=== PATIENT | male | born 1950 | race Caucasian/White ===

== ENCOUNTER 2017-12-06 13:22 | Inpatient (IN) | payer BC, MEDICARE ==
[~2017-12-06] VITALS: Ht 6038.7 cm; Wt 117.7 kg
[~2017-12-06 13:22] MED LIST: PHEN-873 PO
[2017-12-06] MEDS ORDERED: aspirin 81mg tab.chew PO ONE (13:45)
[2017-12-06] MEDS ORDERED: nitroGLYCERIN 0.4mg/hour patch TD ONE (13:45)
[2017-12-06] MEDS ORDERED: furosemide 10 MG/1 ML 10ml inj IV ONE (13:45)
[2017-12-06 13:47] LABS: BASOPHILS % (AUTO) 0.6 % (0-1); EOSINOPHILS # (AUTO) 0.1 X10'3 (0-0.9); EOSINOPHILS % (AUTO) 1.6 % (0-6); HEMATOCRIT 40.3 % (42.0-52.0); HEMOGLOBIN 13.9 g/dl (14.0-17.9); LYMPHOCYTES # (AUTO) 1.7 X10'3 (1.1-4.8); LYMPHOCYTES % (AUTO) 31.2 % (21-51); MEAN CORPUSCULAR HEMOGLOBIN 36.1 PG (27.0-31.0); MEAN CORPUSCULAR HGB CONC 34.5 % (33.0-36.5); MEAN CORPUSCULAR VOLUME 104.6 FL (78-98); MEAN PLATELET VOLUME 7.4 FL (7.4-10.4); MONOCYTES # (AUTO) 0.5 X10'3 (0-0.9); MONOCYTES % (AUTO) 8.4 % (2-12); NEUTROPHILS # (AUTO) 3.3 X10'3 (1.8-7.7); NEUTROPHILS % (AUTO) 58.2 % (42-75); PLATELET COUNT 221 X10'3 (140-440); RED BLOOD COUNT 3.86 X10'6 (4.70-6.10); RED CELL DISTRIBUTION WIDTH 14.6 % (11.5-14.5); WHITE BLOOD COUNT 5.6 X10'3 (4.5-11.0)
[2017-12-06 13:56] LABS: PARTIAL THROMBOPLASTIN TIME 26 SECONDS (22-32); PROTHROMBIN TIME 10.6 SECONDS (9.0-12.0)
[2017-12-06 14:03] LABS: ALANINE AMINOTRANSFERASE 118 U/L (12-78); ALBUMIN/GLOBULIN RATIO 1.1 (1.1-1.5); ALKALINE PHOSPHATASE 113 IU/L (46-116); ANION GAP 12 (8-16); ASPARTATE AMINO TRANSFERASE 37 U/L (10-37); BILIRUBIN,TOTAL 0.7 MG/DL (0.1-1.0); BLOOD UREA NITROGEN 28 MG/DL (7-18); BUN/CREATININE RATIO 19.4 (5.4-32.0); CALCIUM 9.2 MG/DL (8.5-10.1); CHLORIDE 105 MMOL/L (99-107); CREATININE 1.44 MG/DL (0.60-1.10); GLUCOSE 105 MG/DL (70-104); POTASSIUM 3.9 MMOL/L (3.5-5.1); SODIUM 142 MMOL/L (135-145); TOTAL CARBON DIOXIDE 24.9 MMOL/L (24-32); TOTAL PROTEIN 7.6 G/DL (6.4-8.2); eGFR 49 ML/MIN
[2017-12-06] MEDS ORDERED: phenazopyridine 100mg tablet PO PRN (15:15)
[2017-12-06] MEDS ORDERED: potassium Cl 20 mEq SR tablet PO PRN ×2 (15:20)
[2017-12-06] MEDS ORDERED: magnesium Cl slow-release 64mg tablet PO PRN (15:20)
[2017-12-06] MEDS ORDERED: magnesium 4gm in 100ml NS 100 ML IV PRN (15:20)
[2017-12-06] MEDS ORDERED: ondansetron/PF 4mg/2ml inj IV PRN (15:20)
[2017-12-06] MEDS ORDERED: potassium Cl 40MEQ/NS 500ml 500 ML IV PRN ×2 (15:20)
[2017-12-06] MEDS ORDERED: mag hydrox/Alum hydrox/simeth 30ml oral suspension PO PRN (15:20)
[2017-12-06] MEDS ORDERED: morphine 4 MG/ML inj SYRINge IV PRN (15:20)
[2017-12-06] MEDS ORDERED: magnesium hydroxide 30ml (MOM) UD suspension PO PRN (15:20)
[2017-12-06] MEDS ORDERED: magnesium 2GM in 50ml NS 50 ML IV PRN (15:20)
[2017-12-06] MEDS ORDERED: SIMV10TA2 PO (15:56)
[2017-12-06] MEDS: docusate sod 100mg capsule PO SCH (20:17)
[2017-12-06] MEDS: furosemide 10 MG/1 ML 10ml inj IV SCH (20:17)
[2017-12-06] MEDS ORDERED: Melatonin 3mg tablet PO PRN (23:25)
[2017-12-07] VITALS (12 sets, daily range): BP systolic 108–129; BP diastolic 74–90
[2017-12-07] MEDS: acetaminophen 325mg tablet PO PRN ×3 (00:11→11:42)
[2017-12-07] MEDS: nitroGLYCERIN 1gm ointment UD TP SCH ×3 (00:14→11:39)
[2017-12-07 05:55] LABS: BASOPHILS % (AUTO) 0.3 % (0-1); EOSINOPHILS # (AUTO) 0.1 X10'3 (0-0.9); EOSINOPHILS % (AUTO) 1.9 % (0-6); HEMATOCRIT 36.3 % (42.0-52.0); HEMOGLOBIN 12.5 g/dl (14.0-17.9); LYMPHOCYTES # (AUTO) 1.6 X10'3 (1.1-4.8); MEAN CORPUSCULAR HEMOGLOBIN 35.7 PG (27.0-31.0); MEAN CORPUSCULAR HGB CONC 34.4 % (33.0-36.5); MEAN CORPUSCULAR VOLUME 103.7 FL (78-98); MEAN PLATELET VOLUME 7.6 FL (7.4-10.4); MONOCYTES # (AUTO) 0.5 X10'3 (0-0.9); MONOCYTES % (AUTO) 8.3 % (2-12); NEUTROPHILS # (AUTO) 3.6 X10'3 (1.8-7.7); NEUTROPHILS % (AUTO) 61.5 % (42-75); PLATELET COUNT 197 X10'3 (140-440); RED CELL DISTRIBUTION WIDTH 14.6 % (11.5-14.5); WHITE BLOOD COUNT 5.9 X10'3 (4.5-11.0)
[2017-12-07] MEDS ORDERED: regadenoson 0.4mg/5ml syringe IV ONE ×2 (06:00→09:08)
[2017-12-07] MEDS ORDERED: metoprolol tartrate 1mg/ml inj IV PRN (06:00)
[2017-12-07] MEDS ORDERED: aminophylline 250mg/10ml inj. IV PRN (06:00)
[2017-12-07] MEDS ORDERED: nitroGLYCERIN 0.4mg SUBLingual tab SL PRN (06:00)
[2017-12-07 06:24] LABS: ALBUMIN 3.6 G/DL (3.4-5.0); ANION GAP 11 (8-16); BLOOD UREA NITROGEN 30 MG/DL (7-18); BUN/CREATININE RATIO 18.3 (5.4-32.0); CALCIUM 8.9 MG/DL (8.5-10.1); CHLORIDE 107 MMOL/L (99-107); CREATININE 1.64 MG/DL (0.60-1.10); GLUCOSE 96 MG/DL (70-104); MAGNESIUM 1.9 MG/DL (1.5-2.4); POTASSIUM 3.9 MMOL/L (3.5-5.1); SODIUM 145 MMOL/L (135-145); TOTAL CARBON DIOXIDE 26.7 MMOL/L (24-32); eGFR 42 ML/MIN
[2017-12-07] MEDS: furosemide 10 MG/1 ML 10ml inj IV SCH (08:00)
[2017-12-07] MEDS: docusate sod 100mg capsule PO SCH ×2 (08:00→20:15)
[2017-12-07] MEDS: K and/or MAG REPLACEMENT MC SCH (08:00)
[2017-12-07] MEDS: enoxaparin 40mg/0.4ml syringe SUBCUT SCH (08:00)
[2017-12-07] MEDS ORDERED: aminophylline inj. 0 ML IV ONE (09:08)
[2017-12-07] MEDS ORDERED: furosemide 20MG tablet PO ONE (12:40)
[2017-12-07] MEDS ORDERED: carVEDilol 3.125mg tablet PO SCH (20:00)
[2017-12-07] MEDS: carvedilol 6.25mg tablet PO SCH (20:15)
[2017-12-08 03:00] VITALS: BP 120/89
[2017-12-08 04:29] LABS: BASOPHILS % (AUTO) 0.4 % (0-1); EOSINOPHILS # (AUTO) 0.1 X10'3 (0-0.9); EOSINOPHILS % (AUTO) 2.1 % (0-6); HEMATOCRIT 38.6 % (42.0-52.0); HEMOGLOBIN 13.6 g/dl (14.0-17.9); LYMPHOCYTES # (AUTO) 1.7 X10'3 (1.1-4.8); MEAN CORPUSCULAR HEMOGLOBIN 36.2 PG (27.0-31.0); MEAN CORPUSCULAR HGB CONC 35.2 % (33.0-36.5); MEAN CORPUSCULAR VOLUME 102.7 FL (78-98); MEAN PLATELET VOLUME 7.8 FL (7.4-10.4); MONOCYTES # (AUTO) 0.4 X10'3 (0-0.9); MONOCYTES % (AUTO) 8.5 % (2-12); NEUTROPHILS # (AUTO) 2.7 X10'3 (1.8-7.7); PLATELET COUNT 204 X10'3 (140-440); RED BLOOD COUNT 3.76 X10'6 (4.70-6.10); RED CELL DISTRIBUTION WIDTH 14.3 % (11.5-14.5)
[2017-12-08 04:30] LABS: PROTHROMBIN TIME 10.7 SECONDS (9.0-12.0)
[2017-12-08 05:18] LABS: ALANINE AMINOTRANSFERASE 78 U/L (12-78); ALBUMIN 3.5 G/DL (3.4-5.0); ALKALINE PHOSPHATASE 100 IU/L (46-116); ANION GAP 11 (8-16); ASPARTATE AMINO TRANSFERASE 25 U/L (10-37); BILIRUBIN,TOTAL 0.8 MG/DL (0.1-1.0); BLOOD UREA NITROGEN 34 MG/DL (7-18); BUN/CREATININE RATIO 20.7 (5.4-32.0); CHLORIDE 105 MMOL/L (99-107); CREATININE 1.64 MG/DL (0.60-1.10); GLUCOSE 99 MG/DL (70-104); SODIUM 144 MMOL/L (135-145); TOTAL CARBON DIOXIDE 27.8 MMOL/L (24-32); TOTAL PROTEIN 6.9 G/DL (6.4-8.2); eGFR 42 ML/MIN
[2017-12-08 06:00] VITALS: BP 134/88
[2017-12-08] MEDS: carvedilol 6.25mg tablet PO SCH ×2 (08:00→19:13)
[2017-12-08] MEDS: K and/or MAG REPLACEMENT MC SCH (08:00)
[2017-12-08] MEDS ORDERED: lisinopril 5mg tablet PO SCH (08:00)
[2017-12-08] MEDS ORDERED: furosemide 20MG tablet PO SCH (08:00)
[2017-12-08] MEDS: docusate sod 100mg capsule PO SCH ×2 (08:00→19:15)
[2017-12-08] MEDS: enoxaparin 40mg/0.4ml syringe SUBCUT SCH (08:00)
[2017-12-08] MEDS ORDERED: LORazepam 1 MG tablet PO PRN ×2 (08:55→23:45)
[2017-12-08] MEDS: pantoprazole 40 MG vial IV SCH (09:10)
[2017-12-08] MEDS: furosemide 20MG tablet PO SCH (09:10)
[2017-12-08 11:00] VITALS: BP 133/94
[2017-12-08 15:00] VITALS: BP 117/86
[2017-12-08 19:00] VITALS: BP 125/88
[2017-12-08 23:00] VITALS: BP 96/63
[2017-12-08] MEDS ORDERED: LORazepam 2 mg/ml vial IV PRN (23:45)
[2017-12-08] MEDS ORDERED: thiamine inj. 100 MG in normal saline 100ml IV soln 100 ML IV ONE (23:45)
[2017-12-09 03:00] VITALS: BP 107/74
[2017-12-09 05:15] LABS: BASOPHILS % (AUTO) 0.6 % (0-1); EOSINOPHILS # (AUTO) 0.1 X10'3 (0-0.9); EOSINOPHILS % (AUTO) 2.7 % (0-6); HEMATOCRIT 38.5 % (42.0-52.0); HEMOGLOBIN 13.4 g/dl (14.0-17.9); LYMPHOCYTES # (AUTO) 1.9 X10'3 (1.1-4.8); LYMPHOCYTES % (AUTO) 36.2 % (21-51); MEAN CORPUSCULAR HEMOGLOBIN 35.9 PG (27.0-31.0); MEAN CORPUSCULAR HGB CONC 34.9 % (33.0-36.5); MEAN CORPUSCULAR VOLUME 102.8 FL (78-98); MEAN PLATELET VOLUME 7.8 FL (7.4-10.4); MONOCYTES # (AUTO) 0.4 X10'3 (0-0.9); MONOCYTES % (AUTO) 8.6 % (2-12); NEUTROPHILS # (AUTO) 2.7 X10'3 (1.8-7.7); NEUTROPHILS % (AUTO) 51.9 % (42-75); PLATELET COUNT 221 X10'3 (140-440); RED BLOOD COUNT 3.74 X10'6 (4.70-6.10); RED CELL DISTRIBUTION WIDTH 14.3 % (11.5-14.5); WHITE BLOOD COUNT 5.1 X10'3 (4.5-11.0)
[2017-12-09 05:16] LABS: PROTHROMBIN TIME 10.2 SECONDS (9.0-12.0)
[2017-12-09 05:34] LABS: ALANINE AMINOTRANSFERASE 65 U/L (12-78); ALBUMIN 3.6 G/DL (3.4-5.0); ALKALINE PHOSPHATASE 95 IU/L (46-116); AMYLASE 33 U/L (25-115); ANION GAP 10 (8-16); ASPARTATE AMINO TRANSFERASE 22 U/L (10-37); BILIRUBIN,TOTAL 0.7 MG/DL (0.1-1.0); BLOOD UREA NITROGEN 34 MG/DL (7-18); BUN/CREATININE RATIO 22.7 (5.4-32.0); CALCIUM 9.1 MG/DL (8.5-10.1); CHLORIDE 102 MMOL/L (99-107); GLUCOSE 116 MG/DL (70-104); LIPASE 151 U/L (73-393); PHOSPHORUS 4.1 MG/DL (2.3-4.5); SODIUM 140 MMOL/L (135-145); TOTAL CARBON DIOXIDE 28.3 MMOL/L (24-32); TOTAL PROTEIN 7.1 G/DL (6.4-8.2); eGFR 47 ML/MIN
[2017-12-09 07:00] VITALS: BP 118/89
[2017-12-09] MEDS: K and/or MAG REPLACEMENT MC SCH (08:00)
[2017-12-09] MEDS: enoxaparin 40mg/0.4ml syringe SUBCUT SCH (08:00)
[2017-12-09] MEDS: pantoprazole 40 MG vial IV SCH (08:00)
[2017-12-09] MEDS: multivitamins, therapeutics tablet PO SCH (08:00)
[2017-12-09] MEDS ORDERED: folic acid inj. 2 MG, thiamine inj. 100 MG, MVI, adult No.4 with vit. K 10 ML in dextro... IV SCH ×4 (08:00)
[2017-12-09] MEDS: thiamine 100mg tablet PO SCH (08:00)
[2017-12-09] MEDS: folic acid 1mg tablet PO SCH (08:00)
[2017-12-09] MEDS: docusate sod 100mg capsule PO SCH ×2 (08:00→20:00)
[2017-12-09] MEDS: carvedilol 6.25mg tablet PO SCH ×2 (08:02→21:05)
[2017-12-09] MEDS: lisinopril 5mg tablet PO SCH (08:02)
[2017-12-09] MEDS: furosemide 20MG tablet PO SCH (08:02)
[2017-12-09 11:00] VITALS: BP 113/83
[2017-12-09 17:35] VITALS: BP 116/86
[2017-12-09 19:00] VITALS: BP 120/87
[2017-12-09 22:30] VITALS: BP 115/83
[2017-12-10 02:30] VITALS: BP 111/80
[2017-12-10 05:00] LABS: BASOPHILS % (AUTO) 0.6 % (0-1); EOSINOPHILS # (AUTO) 0.1 X10'3 (0-0.9); EOSINOPHILS % (AUTO) 2.8 % (0-6); HEMATOCRIT 38.6 % (42.0-52.0); HEMOGLOBIN 13.3 g/dl (14.0-17.9); LYMPHOCYTES # (AUTO) 1.9 X10'3 (1.1-4.8); LYMPHOCYTES % (AUTO) 39.6 % (21-51); MEAN CORPUSCULAR HEMOGLOBIN 35.7 PG (27.0-31.0); MEAN CORPUSCULAR HGB CONC 34.4 % (33.0-36.5); MEAN CORPUSCULAR VOLUME 103.6 FL (78-98); MEAN PLATELET VOLUME 7.4 FL (7.4-10.4); MONOCYTES # (AUTO) 0.4 X10'3 (0-0.9); MONOCYTES % (AUTO) 9.2 % (2-12); NEUTROPHILS # (AUTO) 2.3 X10'3 (1.8-7.7); NEUTROPHILS % (AUTO) 47.8 % (42-75); PLATELET COUNT 215 X10'3 (140-440); RED BLOOD COUNT 3.73 X10'6 (4.70-6.10); RED CELL DISTRIBUTION WIDTH 14.4 % (11.5-14.5); WHITE BLOOD COUNT 4.9 X10'3 (4.5-11.0)
[2017-12-10 05:16] LABS: PROTHROMBIN TIME 10.2 SECONDS (9.0-12.0)
[2017-12-10 05:17] LABS: ALANINE AMINOTRANSFERASE 57 U/L (12-78); ALBUMIN 3.4 G/DL (3.4-5.0); ALKALINE PHOSPHATASE 87 IU/L (46-116); AMYLASE 32 U/L (25-115); ANION GAP 9 (8-16); ASPARTATE AMINO TRANSFERASE 21 U/L (10-37); BILIRUBIN,TOTAL 0.7 MG/DL (0.1-1.0); BLOOD UREA NITROGEN 31 MG/DL (7-18); BUN/CREATININE RATIO 24.4 (5.4-32.0); CALCIUM 9.2 MG/DL (8.5-10.1); CHLORIDE 105 MMOL/L (99-107); CREATININE 1.27 MG/DL (0.60-1.10); GLUCOSE 100 MG/DL (70-104); LIPASE 147 U/L (73-393); MAGNESIUM 2.2 MG/DL (1.5-2.4); PHOSPHORUS 3.8 MG/DL (2.3-4.5); POTASSIUM 4.3 MMOL/L (3.5-5.1); SODIUM 142 MMOL/L (135-145); TOTAL CARBON DIOXIDE 28.5 MMOL/L (24-32); TOTAL PROTEIN 6.8 G/DL (6.4-8.2); eGFR 57 ML/MIN
[2017-12-10 06:00] VITALS: BP 179/72
[2017-12-10] MEDS: multivitamins, therapeutics tablet PO SCH (08:00)
[2017-12-10] MEDS: K and/or MAG REPLACEMENT MC SCH (08:00)
[2017-12-10] MEDS: pantoprazole 40 MG vial IV SCH (08:00)
[2017-12-10] MEDS: docusate sod 100mg capsule PO SCH ×2 (08:00→20:00)
[2017-12-10] MEDS: enoxaparin 40mg/0.4ml syringe SUBCUT SCH (08:00)
[2017-12-10] MEDS: thiamine 100mg tablet PO SCH (08:00)
[2017-12-10] MEDS: folic acid 1mg tablet PO SCH (08:39)
[2017-12-10] MEDS: carvedilol 6.25mg tablet PO SCH ×2 (08:39→20:14)
[2017-12-10] MEDS: lisinopril 5mg tablet PO SCH (08:39)
[2017-12-10] MEDS: furosemide 20MG tablet PO SCH (08:39)
[2017-12-10 11:30] VITALS: BP 111/80
[2017-12-10 15:30] VITALS: BP 130/76
[2017-12-10] MEDS ORDERED: CARV3.12 PO (20:20)
[2017-12-10] MEDS ORDERED: ASPI-1265 PO (20:20)
[2017-12-10] MEDS ORDERED: FURO-150 PO (20:20)
[2017-12-10] MEDS ORDERED: LISI-604 PO (20:20)
[2017-12-11] MEDS ORDERED: pantoprazole 40mg Tablet.DR PO SCH (07:30)
== END 2017-12-10 21:00 | disposition home or self-care (01) | DRG 291 ==
LOC: ER 13:23 → ED HOLD 15:16 → EDBEDREQ 12-07 13:33 → PCU 3S 12-07 14:16 → CMPBEDREQ 12-07 19:57
PROVIDERS: ADMIT Internal Medicine; ATTEND Internal Medicine
PROC: 4A02XM4 Measurement of Cardiac Total Activity, External Approach (ICD-10-PCS; principal; 2017-12-07)
PROC: 3E073KZ Introduction of Other Diagnostic Substance into Coronary Artery, Percutaneous Approach (ICD-10-PCS; 2017-12-07)
DX: I13.0 Hypertensive heart and chronic kidney disease with heart failure and stage 1 through stage 4 chronic kidney disease, or unspecified chronic kidney disease (principal); N17.0 Acute kidney failure with tubular necrosis; I50.23 Acute on chronic systolic (congestive) heart failure; N18.9 Chronic kidney disease, unspecified; E66.9 Obesity, unspecified; D53.9 Nutritional anemia, unspecified; F10.10 Alcohol abuse, uncomplicated; F17.210 Nicotine dependence, cigarettes, uncomplicated; E78.00 Pure hypercholesterolemia, unspecified; E78.5 Hyperlipidemia, unspecified; N40.0 Benign prostatic hyperplasia without lower urinary tract symptoms; Z90.79 Acquired absence of other genital organ(s)
CPT/HCPCS: 36415; 71045; 78452; 80048; 80053; 82150; 83690; 83735; 83880; 84100; 84443; 84484; 85025; 85610; 85730; 87070; 93005; 93017; 93306; 96374; 97116; 97530; 99285; A9500; C9113; J0280; J1650; J1940; J2270; J3411; J3490; J7030; J7060

== ENCOUNTER 2021-01-22 06:12 | Day surgery (SDC) | payer MEDICARE, OTHER ==
[2021-01-15 10:38] LABS: BASOPHILS % (AUTO) 0.4 % (0-1); EOSINOPHILS # (AUTO) 0.2 X10'3 (0-0.9); LYMPHOCYTES # (AUTO) 1.3 X10'3 (1.1-4.8); MEAN CORPUSCULAR HEMOGLOBIN 36.6 PG (27.0-31.0); MEAN CORPUSCULAR HGB CONC 34.3 g/dL (33.0-36.5); MEAN CORPUSCULAR VOLUME 106.7 FL (78-98); MEAN PLATELET VOLUME 7.5 FL (7.4-10.4); MONOCYTES # (AUTO) 0.3 X10'3 (0-0.9); NEUTROPHILS # (AUTO) 2.4 X10'3 (1.8-7.7); NEUTROPHILS % (AUTO) 56.6 % (42-75); PRE OP HEMATOCRIT 36.6 % (42.0-52.0); PRE OP HEMOGLOBIN 12.6 g/dL (14.0-17.9); PRE OP PLATELET COUNT 197 X10'3 (140-440); RED BLOOD COUNT 3.43 X10'6 (4.70-6.10); RED CELL DISTRIBUTION WIDTH 12.6 % (11.5-14.5)
[2021-01-15 10:53] LABS: ALBUMIN 4.2 G/DL (3.4-5.0); ALBUMIN/GLOBULIN RATIO 1.3 (1.1-1.5); ALKALINE PHOSPHATASE 70 IU/L (46-116); BLOOD UREA NITROGEN 23 MG/DL (7-18); BUN/CREATININE RATIO 19.5 (5.4-32.0); CALCIUM 8.7 MG/DL (8.5-10.1); CHLORIDE 105 MMOL/L (99-107); CREATININE 1.18 MG/DL (0.60-1.10); PRE OP ALT 26 U/L (30-65); PRE OP ANION GAP 7 (8-16); PRE OP AST 18 U/L (10-37); PRE OP BILIRUB, TOTAL 0.5 MG/DL (0.0-1.0); PRE OP GLUCOSE 102 MG/DL (70-104); PRE OP POTASSIUM 4.8 MMOL/L (3.4-5.1); PRE OP SODIUM 140 MMOL/L (135-145); TOTAL CARBON DIOXIDE 28.5 MMOL/L (24-32); TOTAL PROTEIN 7.4 G/DL (6.4-8.2); eGFR 61 ML/MIN
[~2021-01-22] VITALS: Ht 182.9 cm; Wt 113.4 kg
[2021-01-22] VITALS (18 sets, daily range): BP systolic 104–139; BP diastolic 38–83
[~2021-01-22 06:12] MED LIST changes: +ACET-2971 PO; +ACET-3414 PO; +ASPI81TA52 PO; +ATOR40TA72 PO; +CARV-50 PO; +DOCUMENT DATE & TIME OF BETA-BLOCKER PO ONE; +IBUP-24 PO; -PHEN-873 PO; +SACU1TAB4 PO; +SPIR25TA5 PO; +acetaminophen 325mg tablet PO ONE; +cefazolin/dext.iso 2gm/100ml IV ONE; +celeCOXIB 100mg capsule PO ONE; +famotidine 20mg tablet PO ONE; +gabapentin 300mg capsule PO ONE; +metoclopramide 5 mg/ml inj IV ONE; +oxyCODONE SR 10mg (sust. release) tab -2 tabs (20mg) PO ONE; +ringers solution, lacted 1,000 ML IV SCH; +tranexamic acid 1gm/0.7% sal. 100 ML IV ONE; +vancomycin 1,500 MG in NS 300ml IV soln IV ONE
[2021-01-22] MEDS ORDERED: diphenhydrAMINE 25mg capsule PO PRN ×2 (06:40)
[2021-01-22] MEDS ORDERED: HYDROmorphone inj. 0.5 MG/0.5 ML DISP.SYRIN IV PRN (06:40)
[2021-01-22] MEDS ORDERED: HYDROmorphone 1 mg/ml syringe IV PRN (06:40)
[2021-01-22] MEDS ORDERED: bisacodyl 10mg suppository rectal RC PRN (06:40)
[2021-01-22] MEDS ORDERED: acetaminophen 325mg tablet PO PRN (06:40)
[2021-01-22] MEDS ORDERED: ondansetron/PF 4mg/2ml inj IV PRN ×2 (06:40→10:20)
[2021-01-22] MEDS ORDERED: magnesium hydroxide 30ml (MOM) UD suspension PO PRN (06:40)
[2021-01-22] MEDS: potassium cl 20mEq in 1/2 NS 1,000 ML IV SCH ×3 (06:40→22:40)
--- NOTE | 2021-01-22 07:29 | NUR ---
PT 70 YRS OLD, IS NOT ACCUSTOMED TO TAKING NARCOTICS, PARTIAL DOSE OF OXYCONTIN GIVEN, MD AWARE.
[2021-01-22] MEDS ORDERED: spironolactone 25 MG tablet PO SCH (08:00)
[2021-01-22] MEDS: ascorbic acid 500mg tablet PO SCH ×2 (08:00→21:50)
[2021-01-22] MEDS: multivitamins, therapeutics tablet PO SCH (08:00)
[2021-01-22] MEDS ORDERED: vancomycin 1,000mg inj ONE (08:15)
[2021-01-22] MEDS ORDERED: cloNIDine hcl/PF 100mcg/ml inj ONE (08:17)
[2021-01-22] MEDS ORDERED: epiNEPHrine 1 mg/ml inj ONE (08:17)
[2021-01-22] MEDS ORDERED: ROPIVAcaine 0.5% (5mg/ml) 30ml vial ONE (08:18)
[2021-01-22] MEDS: aspirin 325mg tablet PO SCH (08:30)
[2021-01-22] MEDS ORDERED: fentaNYL/PF 50MCG/1 ML 2ML syringe ONE (09:35)
[2021-01-22] MEDS ORDERED: MIDAZolam 1mg/ml 10ml vial ONE (09:36)
[2021-01-22] MEDS ORDERED: BUPIVAcaine/PF 2.5 mg/ml (0.25%) 30ml vial ONE (10:15)
[2021-01-22] MEDS ORDERED: LIDOcaine 1% 30ml preserv. free vial ONE (10:15)
[2021-01-22] MEDS ORDERED: morphine 2 MG/ML inj. syringe IV PRN (10:20)
[2021-01-22] MEDS ORDERED: ringers solution, lacted 1,000 ML IV SCH (10:20)
[2021-01-22] MEDS ORDERED: meperidine/PF 25mg/ml syringe IV PRN ×3 (10:20)
[2021-01-22] MEDS ORDERED: morphine 4 MG/ML inj SYRINge IV PRN (10:20)
[2021-01-22] MEDS ORDERED: proCHLORperazine 10 MG/2 ml inj IV PRN (10:20)
--- NOTE | 2021-01-22 10:55 | NUR ---
Received from OR via BED , accompanied by Anesthesiologist and report given by Anesthesiolgist. PATIENT WAKING UP, NO S/S OF PAIN, V/S WNL, CSM INTACT, SCD ON, PIV TO RUE, .RIGHT HIP JOSE DRESSING CDI WITH LEG BRACE ON LOCKED IN EXTENSION
--- NOTE | 2021-01-22 11:55 | NUR ---
PATIENT A&OX4, DENIES PAIN, V/S WNL, CSM INTACT, SCD ON, PIV TO RUE, .RIGHT HIP JOSE DRESSING CDI WITH LEG BRACE ON LOCKED IN EXTENSION
--- NOTE | 2021-01-22 11:55 | NUR ---
PATIENT TAKEN TO ORTHO WITH ALL BELONGINGS, REPORT GIVEN TO RECIEVING RN WHO HAS TAKEN OVER PATIENT CARE.
[2021-01-22] MEDS: gabapentin 300mg capsule PO SCH ×3 (12:00→20:14)
[2021-01-22] MEDS: atorvastatin 20mg tablet PO SCH (13:01)
[2021-01-22] MEDS: carVEDilol 12.5mg tablet PO SCH ×2 (13:01→20:14)
[2021-01-22] MEDS: Sacubitril/Valsartan (Entresto 97 mg-103 mg Tablet) PO SCH ×2 (13:02→20:00)
[2021-01-22] MEDS ORDERED: tranexamic acid 1gm/0.7% sal. 100 ML IV ONE (15:00)
[2021-01-22] MEDS: HYDROcodone/acetaminophen 10/325mg tab PO PRN ×2 (15:30→21:52)
[2021-01-22] MEDS: cefazolin/dext.iso 2gm/100ml 100 ML IV SCH (15:31)
--- NOTE | 2021-01-22 18:29 | NUR ---
Problems reprioritized. Patient report given, questions answered & plan of care reviewed with MARY ELLEN Bach.
[2021-01-22] MEDS ORDERED: VANCOMYCIN 1,500MG inj. 1,500 MG in normal saline 500ml IV soln 500 ML IV SCH (20:00)
[2021-01-22] MEDS: spironolactone 25 MG tablet PO SCH (20:00)
[2021-01-22] MEDS ORDERED: sennosides 8.6mg tablet PO SCH (21:00)
[2021-01-23] MEDS: cefazolin/dext.iso 2gm/100ml 100 ML IV SCH (00:22)
[2021-01-23 02:00] VITALS: BP 115/65
[2021-01-23] MEDS: HYDROcodone/acetaminophen 10/325mg tab PO PRN ×3 (02:19→09:52)
[2021-01-23] MEDS: potassium cl 20mEq in 1/2 NS 1,000 ML IV SCH (05:59)
--- NOTE | 2021-01-23 06:27 | NUR ---
Patient in room ORTHO 4011B. I have received report from MARY ELLEN ASKEW and had the opportunity to ask questions and assume patient care.
--- NOTE | 2021-01-23 06:30 | NUR ---
Problems reprioritized. Patient report given, questions answered & plan of care reviewed with MARY ELLEN COLIN AND MARY ELLEN CRISTOBAL.
[2021-01-23 06:59] LABS: BASOPHILS % (AUTO) 0.3 % (0-1); EOSINOPHILS # (AUTO) 0.1 X10'3 (0-0.9); EOSINOPHILS % (AUTO) 2.9 % (0-6); HEMATOCRIT 30.6 % (42.0-52.0); HEMOGLOBIN 10.5 g/dl (14.0-17.9); LYMPHOCYTES % (AUTO) 24.1 % (21-51); MEAN CORPUSCULAR HEMOGLOBIN 37.2 PG (27.0-31.0); MEAN CORPUSCULAR HGB CONC 34.4 g/dL (33.0-36.5); MEAN CORPUSCULAR VOLUME 108.3 FL (78-98); MEAN PLATELET VOLUME 7.6 FL (7.4-10.4); MONOCYTES # (AUTO) 0.4 X10'3 (0-0.9); MONOCYTES % (AUTO) 8.7 % (2-12); NEUTROPHILS # (AUTO) 2.6 X10'3 (1.8-7.7); PLATELET COUNT 147 X10'3 (140-440); RED BLOOD COUNT 2.82 X10'6 (4.70-6.10); RED CELL DISTRIBUTION WIDTH 12.6 % (11.5-14.5)
[2021-01-23 07:01] VITALS: BP 136/52
[2021-01-23 07:22] LABS: ANION GAP 5 (8-16); CHLORIDE 101 MMOL/L (99-107); POTASSIUM 5.6 MMOL/L (3.5-5.1); SODIUM 131 MMOL/L (135-145)
[2021-01-23] MEDS: Sacubitril/Valsartan (Entresto 97 mg-103 mg Tablet) PO SCH (08:00)
[2021-01-23] MEDS: ascorbic acid 500mg tablet PO SCH (08:42)
[2021-01-23] MEDS: atorvastatin 20mg tablet PO SCH (08:42)
[2021-01-23] MEDS: aspirin 325mg tablet PO SCH (08:42)
[2021-01-23] MEDS: gabapentin 300mg capsule PO SCH ×2 (08:43→13:06)
[2021-01-23] MEDS: multivitamins, therapeutics tablet PO SCH (08:43)
[2021-01-23] MEDS: carVEDilol 12.5mg tablet PO SCH (08:43)
[2021-01-23] MEDS: spironolactone 25 MG tablet PO SCH (08:45)
--- NOTE | 2021-01-23 08:45 | NUR ---
Student Medication Administration: For this medication-pass time frame, all medications were reviewed, dispensed, administered and documented per hospital policy by Penny PAYNE
--- NOTE | 2021-01-23 11:29 | NUR ---
Joint replacement consult: Pt s/p R hip surgery seen by JUDY for written/verbal high protein ed w/ RD contact information provided. Pt requests no milk to drink; dietary notified. Addendum: 01/23/21 at [address] Amended: Links added.
[2021-01-23] MEDS ORDERED: HYDR-3972 PO (11:33)
[2021-01-23] MEDS ORDERED: CELE100C98 PO (11:33)
[2021-01-23] MEDS ORDERED: ASPI-1 PO (11:33)
[2021-01-23 12:04] VITALS: BP 91/61
--- NOTE | 2021-01-23 13:25 | NUR ---
D/C instructions given to pt, questions answered, teaching reinforced. Belongings gathered by RN and sent with pt. D/C'd pt in stable condition to home in private vehicle. Pt left floor at 1313
--- NOTE | 2021-01-23 18:28 | NUR ---
Acting as preceptor i agree with MARY ELLEN Og assessments.
[2021-01-23] MEDS ORDERED: celeCOXIB 100mg capsule PO SCH (20:00)
== END 2021-01-23 13:13 | disposition home or self-care (01) ==
LOC: PAS 06:12 → ORTHO 4S 06:38 → PAS 01-23 13:13
PROVIDERS: ATTEND Orthopaedic Surgery
DX: M16.11 Unilateral primary osteoarthritis, right hip (principal); I10 Essential (primary) hypertension; J44.9 Chronic obstructive pulmonary disease, unspecified; E66.9 Obesity, unspecified; Z68.34 Body mass index [BMI] 34.0-34.9, adult; G47.30 Sleep apnea, unspecified; Z98.890 Other specified postprocedural states; Z87.891 Personal history of nicotine dependence; Z72.89 Other problems related to lifestyle; Z79.82 Long term (current) use of aspirin; Z79.899 Other long term (current) drug therapy
CPT/HCPCS: 27130; 36415; 71046; 72170; 80051; 80053; 82948; 85025; 86885; 86900; 86901; 87081; 97110; 97161; 97530; C1776; J0171; J0735; J2001; J2250; J2765; J3010; J3370; J3490; J7040; J7120; A4215; A7000; G0378; J2795; J3480